=== PATIENT | female | born 1985 | race American Indian/Alaskan Native ===

== ENCOUNTER 2018-05-23 19:22 | Observation (INO) | payer MEDICAID, MEDICARE ==
[2018-05-23 19:43] VITALS: BP 127/59
[2018-05-23 20:05] LABS: Bilirubin,Urine NEG (Negative); Blood,Urine MOD (Negative); Color,Urine Colorless (Yellow); Mucus,Urine FEW /HPF; Protein,Urine <15 mg/dL mg/dL (Negative); Urobilinogen,Urine < 2.0 mg/dL (<2.0)
[2018-05-23 20:06] LABS: WBC,Urine < 1.0 /HPF (0.0-6.0)
[2018-05-23 20:14] LABS: Amphetamine Screen,Urine PRESUMPTIVE NEGATIVE; Benzodiazepines Screen,Urine PRESUMPTIVE NEGATIVE; Cocaine Screen,Urine PRESUMPTIVE NEGATIVE; Methadone Screen,Urine PRESUMPTIVE NEGATIVE; Opiate Screen,Urine PRESUMPTIVE NEGATIVE
[2018-05-23 20:31] LABS: Cannabinoid Screen,Urine PRESUMPTIVE POSITIVE
[2018-05-23 20:50] LABS: Basophils % (Auto) 0.4 % (0.0-1.8); Eosinophils # (Auto) 0.1 K/mm3 (0.0-0.4); Eosinophils % (Auto) 1.4 % (0.0-4.3); Hematocrit 29.7 % (30.3-42.9); Lymphocytes # (Auto) 2.8 K/mm3 (1.2-5.4); Mean Corpuscular HGB Conc 34 % (30-34); Mean Corpuscular Volume 101 fl (79-97); Monocytes # (Auto) 0.9 K/mm3 (0.0-0.8); Monocytes % (Auto) 9.3 % (0.0-7.3); Platelet Count 224 K/mm3 (140-440); Red Blood Count 2.93 M/mm3 (3.65-5.03); Red Cell Distribution Width 14.8 % (13.2-15.2)
[2018-05-23] MEDS ORDERED: TYLENOL PO ONE (20:56)
[2018-05-23 21:19] LABS: Hepatitis C Virus Antibody Non-Reactive (NonReactive)
--- NOTE | 2018-05-23 23:22 | Ultrasound Report ---
FINAL REPORT EXAM: US OB >= 14 WEEKS FETUS HISTORY: vaginal bleeding-complete previa TECHNIQUE: Real-time sonography was performed of the gravid uterus and images are submitted for inte rpretation. PRIORS: None. FINDINGS: There is a single fetus in the uterus in a cephalic presentation. The placenta is anterior and the inferior portion covers the internal os. The amniotic fluid index is normal at 9.6 cm. The cervix is long and closed measuring 4.4 cm. The heart is beating at a rate of 164 beats per minute. Biometric measurements give an estimated gestational age of 22 weeks 2 days. structures identified include the brain, choroid plexus, cerebellum and cisterna magnum, spine, four-chamber heart, kidneys, bladder, cord insertion, stomach and diaphragm IMPRESSION: 1. Single, live intrauterine gestation, estimated gestational age 22 weeks 2 days for an estimated da te of confinement of 09/24/2018. 2. Placenta previa
--- NOTE | 2018-05-23 23:48 | Vascular Lab Report ---
FINAL REPORT EXAM: VL VENOUS DUPLEX LE RT HISTORY: leg pain r/o DVT TECHNIQUE: Real-time color duplex sonography was performed of the deep venous systems of the [facility] lower extremities and images are submitted for interpretation. PRIORS: None. FINDINGS: Right: There is normal compressibility of the common and superficial femoral veins and the popliteal vein. Normal venous waveforms are demonstrated throughout. There is no echogenic thrombus however the re is increased echogenicity of the flowing venous blood in the common femoral vein, visualized deep femoral vein and popliteal vein. Color flow is demonstrated in the posterior tibialis and peroneal ve ins. Left: There is normal compressibility of the common and superficial femoral veins and the popliteal v ein. Normal venous waveforms are demonstrated throughout. No echogenic thrombus is demonstrated. Ther e is no echogenic thrombus however there is increased echogenicity of the flowing venous blood in the common femoral and greater saphenous veins. Additional images of the right inguinal area show an encapsulated round cyst measuring 2.7 x 2.4 x 2. 8 cm. Images of the left inguinal area demonstrate a hypoechoic spindle shaped structure most likely representing a muscle. IMPRESSION: No evidence of DVT. Echogenic venous flow is a normal finding in secondary to relative blood stasis. 2.8 cm cyst in the right inguinal area is a nonspecific finding. It may be a seroma. Correlation for prior intervention in this area is recommended. Recommend correlation with prior imaging studies if t here are any available.
== END 2018-05-24 07:18 | disposition home or self-care (01) ==
LOC: INTOOBSV 19:22 → LD 19:22
PROVIDERS: ADMIT Obstetrics & Gynecology; ATTEND Obstetrics & Gynecology
DX: O44.02 Complete placenta previa NOS or without hemorrhage, second trimester (principal); Z91.040 Latex allergy status; Z91.048 Other nonmedicinal substance allergy status; Z3A.22 22 weeks gestation of pregnancy
CPT/HCPCS: 36415; 76805; 80307; 81001; 85025; 86592; 86706; 86762; 86803; 87806; 93971; G0378; G0379